=== PATIENT | male | born 1970 | race Caucasian/White ===

== ENCOUNTER 2020-10-03 16:22 | Emergency (ER) | payer MEDICAID ==
[~2020-10-03] VITALS: Ht 162.6 cm; Wt 79.4 kg
[~2020-10-03 16:22] MED LIST: NKM
[2020-10-03 16:56] VITALS: BP 134/93
[2020-10-03] MEDS ORDERED: Morphine Sulfate 4mg/ml Inj (IV USE ONLY) IVP ONE (17:15)
[2020-10-03] MEDS ORDERED: Omnipaque-300 100ml vial INJ ONE (17:15)
[2020-10-03 17:17] VITALS: BP 134/93
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
[2020-10-03 17:28] LABS: BASOPHILS % (AUTO) 1.1 % (0.0-2.0); EOSINOPHILS % (AUTO) 3.6 % (0.0-3.0); HEMATOCRIT 48.5 % (42.0-52.0); HEMOGLOBIN 16.1 G/DL (14.2-18.0); LYMPHOCYTES % (AUTO) 32.9 % (20.0-45.0); MEAN CORPUSCULAR VOLUME 92 FL (80-99); NEUTROPHILS % (AUTO) 54.3 % (45.0-75.0); PLATELET COUNT 261 K/UL (150-450); RED BLOOD COUNT 5.28 M/UL (4.70-6.10); RED CELL DISTRIBUTION WIDTH 12.5 % (11.6-14.8); WHITE BLOOD COUNT 8.6 K/UL (4.8-10.8)
[2020-10-03 17:29] LABS: CALCIUM 8.9 MG/DL (8.5-10.1); CREATININE 1.3 MG/DL (0.55-1.30)
[2020-10-03 17:33] LABS: ALBUMIN 3.6 G/DL (3.4-5.0); ALBUMIN/GLOBULIN RATIO 0.9 (1.0-2.7); BILIRUBIN,TOTAL 0.2 MG/DL (0.2-1.0)
--- NOTE | 2020-10-03 18:00 | NUR ---
ED Nurse Note: pt on monitor. VSS.
--- NOTE | 2020-10-03 18:17 | Diagnostic Imaging Report ---
History: CP Exam: CT CHEST With Contrast Technique more: CTDI is 8.2 mGy and DLP is 355.2 mGy-cm. Technique more: One or more of the following dose reduction techniques were used: automated exposure control, adjustment of the mA and/or kV according to patient size, use of iterative reconstruction technique. Comparison: FINDINGS: The central airways are patent. The lungs are clear. No pneumothorax. Status post cholecystectomy. Thoracic aorta and visualized great vessels appear within limits. No pericardial or pleural effusion. No mediastinal, hilar, subcarinal or axillary adenopathy. No large central pulmonary embolism. Question subtle buckle of the inner cortex of the sternal body/gladiolus for example sagittal 40, clinically correlate. Small fat-containing epigastric ventral hernia without significant appearing stranding. IMPRESSION: Question subtle buckle of the inner cortex of the sternal body/gladiolus for example sagittal 40, clinically correlate.
[2020-10-03 18:27] VITALS: BP 137/96
[2020-10-03] MEDS ORDERED: IBUPROFEN600 M1 ORAL (18:33)
[2020-10-03] MEDS ORDERED: ACETAMINOPHEN-1 EAC1 ORAL (18:33)
--- NOTE | 2020-10-03 18:45 | NUR ---
ER DISCHARGE NOTE: Patient is cleared to be discharged per ERMD, pt is aox4, on room air, with stable vital signs. pt was given dc and prescription instructions, pt was able to verbalize understanding, pt id band and iv site removed without complications. pt is able to ambulate with steady gait. pt took all belongings.
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
--- NOTE | 2020-10-05 14:57 | Cardiology Report ---
APPROVED REPORT EKG Measurement Heart [id number] MD [id number] <Conclusion> Normal sinus rhythm Normal ECG
== END 2020-10-03 18:46 | disposition home or self-care (01) ==
LOC: EMR 16:50
DX: R07.89 Other chest pain (principal); V49.9XXD Car occupant (driver) (passenger) injured in unspecified traffic accident, subsequent encounter
CPT/HCPCS: 36415; 71260; 80053; 84484; 85025; 93005; 96374; J2270; Q9965; Z7502; 99284